=== PATIENT | male | born 1960 | race Caucasian/White ===

== ENCOUNTER 2019-07-18 09:23 | Day surgery (SDC) | payer OTHER ==
[~2019-07-18 09:23] MED LIST: Lactated Ringers 1,000 ML IV SCH
--- NOTE | 2019-07-18 10:08 | PCM.PREANE ---
Preanesthetic Assessment - Anesthesia/Transfusion/Family Hx Anesthesia History: Prior Anesthesia Without Reaction Family History of Anesthesia Reaction: No Transfusion History: No Prior Transfusion(s) Intubation History: Unknown - Review of Systems General: No Symptoms Pulmonary: No Symptoms Cardiovascular: No Symptoms Gastrointestinal: No Symptoms, Other (h/o colon multiple polyps 3 years ago) Neurological: No Symptoms Other: Reports: None - Physical Assessment Height: 6 ft Weight: 110.677 kg ASA Class: 3 Mental Status: Alert & Oriented x3 Airway Class: Mallampati = 2 Dentition: Reports: Normal Dentition, Broken Tooth/Teeth (left lower (back) x1) Thyro-Mental Finger Breadths: 3 Mouth Opening Finger Breadths: 3 ROM/Head Extension: Limited/Partial Lungs: Clear to Auscultation, Normal Respiratory Effort Cardiovascular: Regular Rate, Regular Rhythm - Allergies Allergies/Adverse Reactions: Allergies Allergy/AdvReac Type Severity Reaction Status Date / Time amoxicillin Allergy Shortness Verified 07/13/19 12:21 of Breath - Blood Blood Available: No - Anesthesia Plan Pre-Op Medication Ordered: None - Acknowledgements Anesthesia Type Planned: MAC Pt an Appropriate Candidate for the Planned Anesthesia: Yes Alternatives and Risks of Anesthesia Discussed w Pt/Guardian: Yes Pt/Guardian Understands and Agrees with Anesthesia Plan: Yes PreAnesthesia Questionnaire HEENT History: Reports: Allergic Rhinitis Cardiovascular History: Reports: High Cholesterol, Hypertension Respiratory History: Reports: Asthma (mild, inhaler only prn.) Gastrointestinal History: Reports: Colon Polyp, GERD Genitourinary History: Reports: Renal Calculus Musculoskeletal History: Reports: Back Pain, Chronic Other Musculoskeletal History: back surgery x2 Neurological History: Reports: Other (See Below) (Garrett palsy x8, last time 3 months ago) Endocrine/Metabolic History: Reports: Diabetes, Type II, Obesity/BMI 30+ (BMI 33.1) Hematologic History: Reports: None Other Immunologic History: 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, 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 but was treated - Past Surgical History Head Surgeries/Procedures: Reports: None GI Surgical History: Reports: Colonoscopy ( and ( polyps and TV polyps)) Male Surgical History: Reports: Vasectomy Neurological Surgical History: Reports: Discectomy, Laminectomy - History Comment History Comment: denies etoh - SUBSTANCE USE Smoking Status *Q: Former Smoker (quit ) Tobacco Use Within Last Twelve Months: Smokeless Tobacco Recreational Drug Use History: No - HOME MEDS Home Medications: Home Meds Albuterol Sulfate [Proair Hfa] 2 puff INH BID 03/18/16 [History] Budesonide/Formoterol Fumarate [Symbicort 160-4.5 Mcg Inhaler] 1 inh INH BEDTIME PRN 03/18/16 [History] Fluticasone Propionate [Flonase Allergy Relief] 1 spray NASBOTH BID 03/18/16 [ History] Gabapentin [Neurontin] 300 mg PO BID 03/18/16 [History] Omeprazole Magnesium [Prilosec Otc] 20 mg PO DAILY 03/18/16 [History] atenoloL [Atenolol] 25 mg PO BEDTIME 03/18/16 [History] Cholecalciferol (Vitamin D3) [Vitamin D3] 1,000 unit PO DAILY 07/13/19 [History] Rosuvastatin Calcium 5 mg PO DAILY 07/13/19 [History] Sildenafil Citrate 100 mg PO ASDIRECTED PRN 07/13/19 [History] metFORMIN HCl [Metformin ER Osmotic] 1,000 mg PO BIDMEALS 07/13/19 [History] - CURRENT (IN HOUSE) MEDS Current Meds: Current Medications Lactated Ringer's (Ringers, Lactated) 1,000 mls @ 100 mls/hr IV ASDIRECTED NESHA
[2019-07-18] MEDS ORDERED: Propofol 200 MG/20 ML SDV ONE ×4 (10:41→11:51)
[2019-07-18] MEDS ORDERED: Lidocaine 2% 5 ML SDV ONE (10:41)
--- NOTE | 2019-07-18 12:23 | PCM.OPNOTE ---
- General Post-Op/Procedure Note Date of Surgery/Procedure: 07/18/19 Operative Procedure(s): colonoscopy w snare polypectomy, and egd w bx Findings: see dict [id number] Pre Op Diagnosis: hx of tv polyp Post-Op Diagnosis: Same Anesthesia Technique: Moderate Sedation Primary Surgeon: Marcelino Almaraz Pathology: sent Complications: None Condition: Good
--- NOTE | 2019-07-18 12:32 | PCM.POSTAN ---
POST ANESTHESIA ASSESSMENT - MENTAL STATUS Mental Status: Alert, Oriented - VITAL SIGNS Vital Signs: Last Vital Signs Temp 36 C L 07/18/19 12:08 Pulse 51 L 07/18/19 12:19 Resp 16 07/18/19 12:19 BP 136/78 07/18/19 12:19 Pulse Ox 97 07/18/19 12:19 - RESPIRATORY Respiratory Status: Respiratory Rate WNL, Airway Patent, O2 Saturation Stable - CARDIOVASCULAR CV Status: Pulse Rate WNL, Blood Pressure Stable - GASTROINTESTINAL GI Status: No Symptoms - PAIN Pain Score: 0 - POST OP HYDRATION Hydration Status: Adequate & Stable - OBSERVATIONS Free Text/Narrative:: No anesthesia problems.
[2019-07-18 12:37] VITALS: BP 132/78; PULSE 54
--- NOTE | 2019-07-18 12:48 | PCM48HPAN ---
Post Anesthesia Note - EVALUATION WITHIN 48HRS OF ANESTHETIC Vital Signs in Normal Range: Yes Patient Participated in Evaluation: Yes Respiratory Function Stable: Yes Airway Patent: Yes Cardiovascular Function Stable: Yes Hydration Status Stable: Yes Pain Control Satisfactory: Yes Nausea and Vomiting Control Satisfactory: Yes Mental Status Recovered: Yes Vital Signs: Last Vital Signs Temp 36.1 C 07/18/19 12:25 Pulse 54 L 07/18/19 12:25 Resp 16 07/18/19 12:25 BP 132/78 07/18/19 12:25 Pulse Ox 96 07/18/19 12:25 - COMMENTS/OBSERVATIONS Free Text/Narrative:: No anesthesia problems.
--- NOTE | 2019-07-18 19:13 | OR ---
SURGEON: Marcelino Almaraz MD DATE OF PROCEDURE: 07/18/2019 PREOPERATIVE DIAGNOSES: History of polyp and gastroesophageal reflux disease. POSTOPERATIVE DIAGNOSES: 1. Esophagogastroduodenoscopy diagnoses are stomach polyp and acid reflux. 2. Colonoscopy diagnoses are colon polyp and colon mass. PROCEDURE PERFORMED: 1. Esophagogastroduodenoscopy with biopsy. 2. Colonoscopy with snare polypectomy. 3. Inking tattoo. DESCRIPTION OF PROCEDURE: EGD: The patient was taken to the endoscopy room, and with the WOOD FINISHER APPRENTICE, Diprivan was administered. A well-lubricated EGD scope was gently inserted through the oropharynx, down the esophagus, passing through the gastroesophageal junction, into the stomach. The mucosa was examined upon the passage. Any etiology will be noted. Once in the stomach, we continued to advance to the distal antrum, passed through the pylorus into the second portion of the duodenum. Again, the mucosa was examined for any abnormality and etiology. The scope was then retrieved back to the stomach and then retroflexed to look at the fundus of the stomach. If a biopsy was indicated, we will biopsy the antrum, body, and gastroesophageal junction. The air will be sucked out while the scope is retrieved to reduce the patient's discomfort. Prior to surgery, a time-out had been called, the patient identified, procedure identified and antibiotic administered. Colonoscopy: The patient was taken to the endoscopy room. A time out was called, patient identified, and procedure identified. Diprivan was then administrated. Patient went from awake to sleep, hearing doctor talking or door closing is normal. Perineum inspection and digital examination were then performed. A well-lubricated colonoscope was gently inserted through the rectum, advanced past the rectosigmoid junction, the descending colon, splenic flexure, transverse colon, hepatic flexure, ascending colon, arrived to the cecum. Cecum was identified as dictated in the finding. Then the scope was carefully withdrawn while attention was paid to the mucosal surface for any abnormality. Air will be sucked out during the scope withdrawal. At the rectum, retroflexed to examine any rectal diseases, fistula or hemorrhoids. During mucosal examination, abnormality or polyp encountered. Using snare equipment, the abnormality or the polyp was then snared off using electrocautery. The patient tolerated the procedure well. There were no intraoperative complications. Dr. Almaraz was present through the whole procedure. FINDINGS: EGD findings: 1. The patient was easily sedated with WOOD FINISHER APPRENTICE and Diprivan, the patient is soundly snoring. 2. Oropharynx and proximal esophagus are free of disease and proximal esophagus has no stricture or inflammation. Distal esophagus at distance 40 shows mild salmon-colored change, suggests acid reflux. Stomach rugae is normal in appearance and antrum has 2 polyps, one is at 3 o'clock, about a size of 3 mm to 4 mm, biopsy forceps, removed. Another one is in the fundus, which is around 1 mm. That one is biopsy forceps, removed. Going to the duodenum, duodenum looks pristine, then back out of the stomach, retroflexed to look. The patient does not have hiatal hernia. Biopsy done on antrum, body, GE junction at 40, and sucked out the gas while scope pulling out. Also include gastric polyp at the fundus and gastric polyp at the antrum, both biopsied, and removed. During the whole study, there is no blood, ulcer, bile, or food observed. Colonoscopy findings: 1. The patient is easily sedated with WOOD FINISHER APPRENTICE and Diprivan, patient is soundly snoring. 2. Bowel prep is average with some liquid stool, no semi-formed stool. 3. Colon is rather straightforward. Cecum indicated by ileocecal fold, one-to- one indentation, and appendiceal orifice and ScopeGuide is pointing south. Light emittance is not observed. When the scope go in, I encountered 2 polyps right at the same place. I think distance was 85 mm. It was tattooed, one is about a size of 8 mm, snared and removed. Another one is 5 mm, snared and removed, and the area is tattooed. It is probably around the hepatic flexure, 85 cm when scope going and then I reached cecum, and then in the cecum, there are 4 polyps and some of the them are not too small, and all are snared and removed and captured and sent to Pathology. When the scope coming out, right next to TI and distal to the TI, there is a mass about the size of 20 mm. We snared and removed half of it, and the other half, we do not want to remove at this time, #1 is too big to remove and #2, it is better to remove it after 2 to 3 months if we can remove by saline elevation technique. That mass is also tattooed, is right next to the terminal ileum. It is in the cecum but is immediately right at the terminal ileum, and the terminal ileum looks a little bit not smooth wall, and biopsy of the terminal ileum is right close to the 20 mm mass, and then scope continue to come out. I encountered another one. This one is close about 15 mm. This one is one ring distal to the cecum, snared, and captured and sent to Pathology. Because it was too big to be able to suck out and the whole colonoscopy has to come out with the polyp and after that we go back with colonoscope, so the patient basically has 2 colonoscopies done. When we go back, we see probably another one very close to one ring distal to the cecum, but we can see it once and we cannot find it again, so in summary, there is half of the 20 mm mass right distal to the TI left behind, however, and probably another small polyp about the size of 5 mm to 6 mm 1 to 2 ring after the TI, and 2 tattoos, one tattoo at the 85 mm and another one is tattoo at the TI indicated the location of the mass. The patient has mild diverticulosis in the left colon. No signs or symptoms of inflammation or diverticulitis. No other mass or growth. The patient has mild internal hemorrhoids, no external hemorrhoids. The patient would probably benefit to repeat the colonoscopy with somebody who does saline elevation in 3 to 6 months or depending on the pathology come back, may need surgical resection of the right colon. We will address all this after the pathology report. JULIAN / OLIVA /[id number]
== END 2019-07-18 13:00 | disposition home or self-care (01) ==
LOC: MW.SDS 09:23
PROVIDERS: ATTEND Surgery
DX: Z12.11 Encounter for screening for malignant neoplasm of colon (principal); D12.3 Benign neoplasm of transverse colon; D12.0 Benign neoplasm of cecum; K31.7 Polyp of stomach and duodenum; K29.50 Unspecified chronic gastritis without bleeding; K57.30 Diverticulosis of large intestine without perforation or abscess without bleeding; K64.8 Other hemorrhoids; K21.0 Gastro-esophageal reflux disease with esophagitis; K52.9 Noninfective gastroenteritis and colitis, unspecified; E78.00 Pure hypercholesterolemia, unspecified; J45.909 Unspecified asthma, uncomplicated; I10 Essential (primary) hypertension; E11.9 Type 2 diabetes mellitus without complications; E66.9 Obesity, unspecified; Z68.33 Body mass index [BMI] 33.0-33.9, adult; Z87.891 Personal history of nicotine dependence; Z88.0 Allergy status to penicillin; Z86.010 Personal history of colon polyps; Z98.890 Other specified postprocedural states; Z79.899 Other long term (current) drug therapy; Z79.84 Long term (current) use of oral hypoglycemic drugs; Z79.51 Long term (current) use of inhaled steroids
CPT/HCPCS: 43239; 45380; 45381; 45385; 88305; 88312; J2001; J2704; J7120; 00813

== ENCOUNTER 2021-01-09 06:46 | Day surgery (SDC) | payer OTHER, BC ==
--- NOTE | 2021-01-09 06:57 | PCM.PREANE ---
Preanesthetic Assessment - Anesthesia/Transfusion/Family Hx Anesthesia History: Prior Anesthesia Without Reaction Transfusion History: No Prior Transfusion(s) Intubation History: Unknown - Review of Systems General: No Symptoms Pulmonary: No Symptoms Cardiovascular: No Symptoms Gastrointestinal: No Symptoms Neurological: No Symptoms Other: Reports: None - Physical Assessment NPO Status Date: 01/09/21 NPO Status Time: 00:00 Height: 6 ft Weight: 248 lb ASA Class: 3 Mental Status: Alert & Oriented x3 Airway Class: Mallampati = 2 Dentition: Reports: Normal Dentition Thyro-Mental Finger Breadths: 3 Mouth Opening Finger Breadths: 3 ROM/Head Extension: Full Lungs: Clear to Auscultation, Normal Respiratory Effort Cardiovascular: Regular Rate, Regular Rhythm - Allergies Allergies/Adverse Reactions: Allergies Allergy/AdvReac Type Severity Reaction Status Date / Time amoxicillin Allergy Shortness Verified 07/13/19 12:21 of Breath - Acknowledgements Anesthesia Type Planned: General Anesthesia Pt an Appropriate Candidate for the Planned Anesthesia: Yes Alternatives and Risks of Anesthesia Discussed w Pt/Guardian: Yes Pt/Guardian Understands and Agrees with Anesthesia Plan: Yes PreAnesthesia Questionnaire HEENT History: Reports: Allergic Rhinitis Cardiovascular History: Reports: High Cholesterol, Hypertension Respiratory History: Reports: Asthma Gastrointestinal History: Reports: Colon Polyp, GERD Genitourinary History: Reports: BPH, Renal Calculus Musculoskeletal History: Reports: Back Pain, Chronic Other Musculoskeletal History: back surgery x2 Neurological History: Reports: None Psychiatric History: Reports: None Endocrine/Metabolic History: Reports: Obesity/BMI 30+, Other (See Below) Other Endocrine/Metabolic History: pre-diabetic Hematologic History: Reports: None Immunologic History: Reports: Other (See Below) Other Immunologic History: 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, 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 but was treated Oncologic (Cancer) History: Reports: None Dermatologic History: Reports: None - Past Surgical History Head Surgeries/Procedures: Reports: None HEENT Surgical History: Cardiovascular Surgical History: Reports: None Respiratory Surgical History: Reports: None GI Surgical History: Reports: Colonoscopy Male Surgical History: Reports: None, Vasectomy Neurological Surgical History: Reports: Discectomy, Laminectomy Other Neurological Surgeries/Procedures: back surgery x2 Oncologic Surgical History: Reports: None - History Comment History Comment: denies etoh - SUBSTANCE USE Tobacco Use Status *Q: Current Every Day Tobacco User Tobacco Use Within Last Twelve Months: Snuff/Dip Recreational Drug Use History: No - HOME MEDS Home Medications: Home Meds Albuterol Sulfate [Proair Hfa] 2 puff INH BID 03/18/16 [History] Budesonide/Formoterol Fumarate [Symbicort 160-4.5 Mcg Inhaler] 1 inh INH BEDTIME PRN 03/18/16 [History] Fluticasone Propionate [Flonase Allergy Relief] 1 spray NASBOTH BID 03/18/16 [History] Gabapentin [Neurontin] 300 mg PO BID 03/18/16 [History] Omeprazole Magnesium [Prilosec Otc] 20 mg PO DAILY 03/18/16 [History] atenoloL [Atenolol] 25 mg PO BEDTIME 03/18/16 [History] Cholecalciferol (Vitamin D3) [Vitamin D3] 1,000 unit PO DAILY 07/13/19 [History] Rosuvastatin Calcium 5 mg PO DAILY 07/13/19 [History] Sildenafil Citrate 100 mg PO ASDIRECTED PRN 07/13/19 [History] metFORMIN HCl [Metformin ER Osmotic] 1,000 mg PO BIDMEALS 07/13/19 [History] - CURRENT (IN HOUSE) MEDS Current Meds: Current Medications Lactated Ringer's (Ringers, Lactated) 1,000 mls @ 125 mls/hr IV ASDIRECTED NESHA
[2021-01-09] MEDS ORDERED: fentaNYL 100 MCG/2 ML SDV ONE ×3 (07:27→17:03)
[2021-01-09] MEDS ORDERED: Propofol 200 MG/20 ML SDV ONE ×5 (07:27→17:02)
--- NOTE | 2021-01-09 08:41 | PCM.POSTAN ---
POST ANESTHESIA ASSESSMENT - MENTAL STATUS Mental Status: Alert, Oriented - VITAL SIGNS Vital Signs: Last Vital Signs Temp 96.8 F L 01/09/21 06:55 Pulse 56 L 01/09/21 06:55 Resp 16 01/09/21 06:55 BP 154/80 H 01/09/21 06:55 Pulse Ox 96 01/09/21 06:55 - RESPIRATORY Respiratory Status: Respiratory Rate WNL, Airway Patent, O2 Saturation Stable - CARDIOVASCULAR CV Status: Pulse Rate WNL, Blood Pressure Stable - GASTROINTESTINAL GI Status: No Symptoms - POST OP HYDRATION Hydration Status: Adequate & Stable
--- NOTE | 2021-01-09 08:42 | PCM48HPAN ---
Post Anesthesia Note - EVALUATION WITHIN 48HRS OF ANESTHETIC Vital Signs in Normal Range: Yes Patient Participated in Evaluation: Yes Respiratory Function Stable: Yes Airway Patent: Yes Cardiovascular Function Stable: Yes Hydration Status Stable: Yes Pain Control Satisfactory: Yes Nausea and Vomiting Control Satisfactory: Yes Mental Status Recovered: Yes Vital Signs: Last Vital Signs Temp 96.8 F L 01/09/21 06:55 Pulse 56 L 01/09/21 06:55 Resp 16 01/09/21 06:55 BP 154/80 H 01/09/21 06:55 Pulse Ox 96 01/09/21 06:55
--- NOTE | 2021-01-09 08:49 | PCM.OPNOTE ---
- General Post-Op/Procedure Note Date of Surgery/Procedure: 01/09/21 Operative Procedure(s): colonoscopy with snare polypectomy Findings: see [id number] Pre Op Diagnosis: colon polyps Post-Op Diagnosis: Same Anesthesia Technique: Moderate Sedation Primary Surgeon: Marcelino Almaraz Pathology: polyps sent Complications: None Condition: Good
[2021-01-09 08:57] VITALS: BP 138/77; PULSE 53
--- NOTE | 2021-01-09 16:24 | OR ---
SURGEON: Marcelino Almaraz MD DATE OF PROCEDURE: 01/09/2021 PREOPERATIVE DIAGNOSIS: Polyp history. POSTOPERATIVE DIAGNOSIS: Colon polyp. PROCEDURE PERFORMED: Colonoscopy with snare polypectomy. The patient was taken to the endoscopy room. A time out was called, patient identified, and procedure identified. Diprivan was then administrated. Patient went from awake to sleep, hearing doctor talking or door closing is normal. Perineum inspection and digital examination were then performed. A well- lubricated colonoscope was gently inserted through the rectum, advanced past the rectosigmoid junction, the descending colon, splenic flexure, transverse colon, hepatic flexure, ascending colon, arrived to the cecum. Cecum was identified as dictated in the finding. Then the scope was carefully withdrawn while attention was paid to the mucosal surface for any abnormality. Air will be sucked out during the scope withdrawal. At the rectum, retroflexed to examine any rectal diseases, fistula or hemorrhoids. During mucosal examination, abnormality or polyp encountered. Using snare equipment, the abnormality or the polyp was then snared off using electrocautery. The Patient tolerated procedure well. There were no intraoperative complications, and Dr. Almaraz was present throughout the whole procedure. FINDINGS: 1. The patient is easily sedated with SCIENCE AND OPERATIONS OFFICER. The patient is soundly sleeping. 2. Bowel prep is average. No semi-formed stool. No liquid stool. 3. Colon is rather straightforward. Cecum indicated by ileocecal fold, one-to- one indentation, TI, and appendiceal orifice. Scope guide is pointing South. Mucosa examined with some irrigation upon scope pulling out. The patient has 5 small polyps to be removed, 2 of them were very small, about 2 to 3 mm, and the terminal ileum is a little bit prominent, we biopsied, and previous possibly removed polyp can no longer be found. Despite the fact we looked around, looked around, and looked around, we do not see anything suspicious at all around the TI and around 1 to 2 rings distal to it. Then at 90, we see another polyp at 90 cm distance and we removed it with cold biopsy forceps, and then at 100 cm, we saw another one, this one with snare and removed and captured, and then at 40, and then at 30 cm distance, we saw 2 more polyps and we using cold biopsy forceps removed it. We did not seem to see too much of diverticulosis this time. There were no internal hemorrhoids, there were mild external hemorrhoids. With a lot of polyp and depends on the pathology, the patient likely will benefit to have a repeat colonoscopy in 18 months from today or 3 years depending on the pathology report or if clinically indicated otherwise. JULIAN BAPTISTE /[id number] ROMAN
[2021-01-09] MEDS ORDERED: Dexamethasone 4 MG/ML 5 ML MDV ONE (17:02)
[2021-01-09] MEDS ORDERED: Midazolam 1 MG/ML 2 ML SDV ONE (17:09)
[2021-01-09] MEDS ORDERED: Oxytocin 10 Units/1 ML SDV ONE (17:11)
== END 2021-01-09 09:22 | disposition home or self-care (01) ==
LOC: MW.SDS 06:46
PROVIDERS: ATTEND Surgery
DX: Z12.11 Encounter for screening for malignant neoplasm of colon (principal); D12.6 Benign neoplasm of colon, unspecified; K21.9 Gastro-esophageal reflux disease without esophagitis; I10 Essential (primary) hypertension; E78.00 Pure hypercholesterolemia, unspecified; E66.9 Obesity, unspecified; Z88.0 Allergy status to penicillin; Z88.1 Allergy status to other antibiotic agents; Z79.899 Other long term (current) drug therapy; Z98.890 Other specified postprocedural states; Z87.891 Personal history of nicotine dependence; Z68.32 Body mass index [BMI] 32.0-32.9, adult
CPT/HCPCS: 45380; 45385; J2704; J3010; J7120; 00812; J1100; J2250; J2590

== ENCOUNTER 2022-06-25 07:39 | Day surgery (SDC) | payer OTHER, BC ==
[~2022-06-25 07:39] MED LIST changes: +Propofol 200 MG/20 ML SDV ONE
[2022-06-25] MEDS ORDERED: fentaNYL 100 MCG/2 ML SDV ONE (09:21)
[2022-06-25] MEDS ORDERED: Propofol 200 MG/20 ML SDV ONE (09:31)
[2022-06-25 13:13] VITALS: BP 166/83; PULSE 54
== END 2022-06-25 10:27 | disposition home or self-care (01) ==
LOC: MW.SDS 07:39
PROVIDERS: ATTEND Surgery
DX: Z12.11 Encounter for screening for malignant neoplasm of colon (principal); D12.0 Benign neoplasm of cecum; D12.4 Benign neoplasm of descending colon; K64.4 Residual hemorrhoidal skin tags; K57.30 Diverticulosis of large intestine without perforation or abscess without bleeding; J45.909 Unspecified asthma, uncomplicated; E11.9 Type 2 diabetes mellitus without complications; K21.9 Gastro-esophageal reflux disease without esophagitis; I10 Essential (primary) hypertension; E78.00 Pure hypercholesterolemia, unspecified; F17.200 Nicotine dependence, unspecified, uncomplicated; E66.9 Obesity, unspecified; Z68.30 Body mass index [BMI] 30.0-30.9, adult; Z86.010 Personal history of colon polyps; N40.0 Benign prostatic hyperplasia without lower urinary tract symptoms; Z88.0 Allergy status to penicillin; Z79.84 Long term (current) use of oral hypoglycemic drugs; Z79.899 Other long term (current) drug therapy; Z88.1 Allergy status to other antibiotic agents
CPT/HCPCS: 45380; 45385; 88305; J2704; J3010; J7120; 00812